=== PATIENT | male | born 1990 | race African-American/Black ===

== ENCOUNTER 2020-05-24 15:24 | Inpatient (IN) ==
[2020-05-24] MEDS ORDERED: SODIUM CHLORIDE 0.9% 1,000 ML IV STA (16:11)
[2020-05-24] MEDS ORDERED: LORazepam 2 MG/1 ML VIAL IV STA (17:26)
[2020-05-24] MEDS ORDERED: ONDANSETRON 4 MG/2 ML VIAL ONE (18:18)
[2020-05-24 18:20] LABS: Basophils % 0.1 % (0.0-0.8); Hematocrit 44.9 VOL% (42.0-52.0); Immature Granulocytes % 0.2 %; Immature Granulocytes Absolute 0.03 #; Lymphocytes # 0.6 10*3/uL (1.4-4.0); Lymphocytes % 4.5 % (21.2-54.2); Mean Corpuscular HGB Conc 33.4 GM/DL (32-36); Mean Corpuscular Volume 87.7 FL (87-102); Monocytes % 3.8 % (1.7-12.7); Neutrophils % 91.4 % (38.7-73.9); Platelet Count 183 T/CUMM (130-400); Red Blood Count 5.12 MC/CUMM (3.8-5.5); Red Cell Distribution Width 12.6 % (9.3-17.3); White Blood Count 12.3 T/CUMM (4-12)
[2020-05-24 18:41] LABS: Lymphocytes 6 % (20-55); Platelet Estimate Adequate; Segmented Neutrophils 92 % (50-85); Total Cells Counted 100
[2020-05-24 18:50] LABS: Alanine Aminotransferase 22 U/L (16-61); Albumin 4.5 G/DL (3.4-5.0); Alkaline Phosphatase 72 U/L (45-117); Aspartate Amino Transferase 37 U/L (0-37); Blood Urea Nitrogen 14 MG/DL (7-18); Calcium 8.7 MG/DL (8.5-10.1); Estimated Glom Filtration Rate 119 ML/MIN; Glucose 70 MG/DL (74-106); Osmolality,Calculated 275.5 MOS/KG (273-304); Total Protein 8.1 G/DL (6.4-8.3)
[2020-05-24 18:58] LABS: Troponin I < 0.015 NG/ML (0.00-0.045)
[2020-05-24 19:04] LABS: Acetaminophen 17.3 UG/ML (10-30); Salicylate < 2.8 MG/DL (2.8-20)
[2020-05-24] MEDS ORDERED: ONDANSETRON 4 MG/2 ML VIAL IV STA (19:08)
[2020-05-24] MEDS ORDERED: LACTATED RINGERS 1,000 ML IV ONE (19:33)
[2020-05-24] MEDS ORDERED: POTASSIUM CHLORIDE 20 MEQ TABLET PO STA (19:33)
[2020-05-24 20:29] LABS: Bilirubin,Urine Negative (Negative); Blood, Urine Negative (Negative); Glucose,Urine (UA) Negative (Negative); Ketones,Urine 20 mg/dL (Negative); Mucus,Urine Many /LPF (Occasional); Nitrite,Urine Negative (Negative); Protein,Urine 100 MG/DL; RBC,Urine 3 /HPF (0-4); Squamous Epithelial Cell,Urine Occasional /HPF (0-10); Urine Appearance Slightly Hazy (Clear); Urine Color Yellow (Yellow); Urine Specific Gravity 1.028 (1.001-1.035); Urine Urobilinogen < 2.0 EU/DL (0.2-1.0); WBC,Urine 18 /HPF (0-6)
[2020-05-24 20:41] LABS: Barbiturates Screen,Urine Negative (Negative); Benzodiazepines Screen,Urine Negative (Negative); Cannabinoid Screen,Urine Positive (Negative); Opiate Screen,Urine Negative (Negative); Phencyclidine Screen,Urine Negative (Negative)
[2020-05-24] MEDS ORDERED: GLUCAGON 1 MG VIAL IM PRN (21:20)
[2020-05-24] MEDS ORDERED: DEXTROSE 50% 25 GM/50 ML VIAL IV PRN (21:20)
[2020-05-24] MEDS ORDERED: guaiFENesin/DM ER 600-30 MG TABLET PO PRN (21:20)
[2020-05-24] MEDS ORDERED: LORazepam 2 MG/1 ML VIAL IV PRN (21:20)
[2020-05-24] MEDS ORDERED: NICOTINE 21 MG/24 HR PATCH TRANSDERM PRN (21:20)
[2020-05-24] MEDS ORDERED: ONDANSETRON 4 MG/2 ML VIAL IV PRN (21:20)
[2020-05-24] MEDS ORDERED: hydrALAZINE 20 MG/1 ML VIAL IV PRN (21:20)
[2020-05-25] MEDS: SODIUM CHLORIDE 0.9% 1,000 ML IV SCH ×2 (00:54→09:24)
[2020-05-25 05:51] LABS: Basophils % 0.2 % (0.0-0.8); Eosinophils % 0.1 % (0.00-10.9); Hematocrit 40.4 VOL% (42.0-52.0); Hemoglobin 13.9 GM/DL (14.0-18.0); Immature Granulocytes % 0.3 %; Immature Granulocytes Absolute 0.03 #; Lymphocytes # 1.4 10*3/uL (1.4-4.0); Lymphocytes % 12.4 % (21.2-54.2); Mean Corpuscular HGB Conc 34.4 GM/DL (32-36); Mean Corpuscular Volume 87.3 FL (87-102); Monocytes % 6.6 % (1.7-12.7); Neutrophils % 80.4 % (38.7-73.9); Platelet Count 187 T/CUMM (130-400); Red Blood Count 4.63 MC/CUMM (3.8-5.5); Red Cell Distribution Width 12.6 % (9.3-17.3); White Blood Count 10.9 T/CUMM (4-12)
[2020-05-25 06:52] LABS: Albumin 3.9 G/DL (3.4-5.0); Bilirubin,Total 1.5 MG/DL (0.2-1.0); Calcium 8.6 MG/DL (8.5-10.1); Osmolality,Calculated 279.1 MOS/KG (273-304)
[2020-05-25] MEDS ORDERED: POTASSIUM CHLORIDE 20 MEQ TABLET PO ONE (08:06)
[2020-05-25] MEDS ORDERED: POTASSIUM CHLORIDE INJ 20 MEQ in LACTATED RINGERS 1,000 ML IV SCH (09:00)
[2020-05-25] MEDS: POTASSIUM CHLORIDE 20 MEQ TABLET PO PRN ×3 (09:49→12:12)
[2020-05-25] MEDS: LACTATED RINGERS 1,000 ML IV SCH ×3 (12:15→21:18)
[2020-05-25] MEDS: cefTRIAXone 1,000 MG in SYRINGE 1 EACH IV SCH (12:18)
[2020-05-26 01:03] LABS: Basophils % 0.1 % (0.0-0.8); Eosinophils # 0.1 10*3/uL (0.0-0.87); Eosinophils % 1.3 % (0.00-10.9); Hematocrit 36.8 VOL% (42.0-52.0); Hemoglobin 11.9 GM/DL (14.0-18.0); Immature Granulocytes % 0.1 %; Immature Granulocytes Absolute 0.01 #; Lymphocytes # 2.1 10*3/uL (1.4-4.0); Lymphocytes % 30.8 % (21.2-54.2); Mean Corpuscular HGB Conc 32.3 GM/DL (32-36); Mean Corpuscular Volume 90.2 FL (87-102); Mean Platelet Volume 11.2 FL (9.6-12.0); Monocytes % 8.1 % (1.7-12.7); Neutrophils % 59.6 % (38.7-73.9); Platelet Count 150 T/CUMM (130-400); Red Blood Count 4.08 MC/CUMM (3.8-5.5); Red Cell Distribution Width 12.9 % (9.3-17.3); White Blood Count 6.7 T/CUMM (4-12)
[2020-05-26 01:27] LABS: Albumin 3.3 G/DL (3.4-5.0); Bilirubin,Total 0.6 MG/DL (0.2-1.0); Calcium 7.9 MG/DL (8.5-10.1); Osmolality,Calculated 279.1 MOS/KG (273-304); Total Protein 5.6 G/DL (6.4-8.3)
[2020-05-26] MEDS: LACTATED RINGERS 1,000 ML IV SCH ×5 (02:37→21:22)
[2020-05-26] MEDS: ENOXAPARIN 40 MG/0.4 ML SYRINGE SUBCUT SCH (10:04)
[2020-05-26] MEDS: cefTRIAXone 1,000 MG in SYRINGE 1 EACH IV SCH (12:07)
[2020-05-27] MEDS: LACTATED RINGERS 1,000 ML IV SCH ×2 (05:04→10:37)
[2020-05-27] MEDS: ENOXAPARIN 40 MG/0.4 ML SYRINGE SUBCUT SCH (09:03)
[2020-05-27 09:06] LABS: Basophils % 0.2 % (0.0-0.8); Eosinophils # 0.2 10*3/uL (0.0-0.87); Eosinophils % 2.6 % (0.00-10.9); Hematocrit 37.6 VOL% (42.0-52.0); Hemoglobin 12.4 GM/DL (14.0-18.0); Immature Granulocytes % 0.2 %; Immature Granulocytes Absolute 0.01 #; Lymphocytes # 1.5 10*3/uL (1.4-4.0); Lymphocytes % 23.2 % (21.2-54.2); Mean Corpuscular Volume 88.5 FL (87-102); Mean Platelet Volume 11.2 FL (9.6-12.0); Monocytes % 7.1 % (1.7-12.7); Neutrophils % 66.7 % (38.7-73.9); Platelet Count 145 T/CUMM (130-400); Red Blood Count 4.25 MC/CUMM (3.8-5.5); Red Cell Distribution Width 12.6 % (9.3-17.3); White Blood Count 6.5 T/CUMM (4-12)
[2020-05-27 09:26] LABS: Albumin 3.4 G/DL (3.4-5.0); Bilirubin,Total 0.6 MG/DL (0.2-1.0); Calcium 8.4 MG/DL (8.5-10.1); Osmolality,Calculated 274.4 MOS/KG (273-304); Total Protein 6.5 G/DL (6.4-8.3)
[2020-05-27 11:57] VITALS: BP 117/72
== END 2020-05-27 12:52 | disposition left against medical advice (07) | DRG 918 ==
LOC: EDBD → EDUNIT# → N.ED 15:24 → N.EDINP 21:20 → N.TELES 05-25 00:33
PROVIDERS: ADMIT Internal Medicine; ATTEND Internal Medicine